=== PATIENT | male | born 1985 | race African-American/Black ===

== ENCOUNTER 2020-05-18 07:11 | Emergency (ER) | payer SELFPAY ==
[~2020-05-18] VITALS: Ht 177.8 cm; Wt 90.0 kg
[2020-05-18] MEDS ORDERED: SODIUM CHLORIDE FLUSH 10ML SYR IVF ONE (07:30)
--- NOTE | 2020-05-18 07:30 | NUR ---
PT BIB EMS FOR SEIZURE ACTIVITY. PT HAD WITNESSED 2 MIN, TONIC CLONIC SEIZURE. NO INJURY. PT PROTECTED. PT IS POST ICTAL AND CONFUSED AT THIS TIEM. A&OX3. AUDIO/VISUAL OPERATOR IN PLACE, SEIZURE PADS ON BED RAILS. CALL LIGHT IN REACH.
[2020-05-18 07:47] LABS: BASOPHILS % (AUTO) 1 % (0-1); EOSINOPHILS % (AUTO) 1 % (1-7); LYMPHOCYTES % (AUTO) 34 % (22-44); MEAN CORPUSCULAR HGB CONC 33.3 g/dL (33.2-36.2); MEAN PLATELET VOLUME 8.6 fL (7.4-10.4); MONOCYTES % (AUTO) 7 % (2-9); NEUTROPHILS % (AUTO) 57 % (42-75); PLATELET COUNT 267 x10^3/uL (130-400); RED BLOOD COUNT 5.28 x10^6/uL (4.38-5.82)
[2020-05-18 07:48] LABS: MD NO
[2020-05-18 08:03] LABS: ALANINE AMINOTRANSFERASE 35 U/L (12-78); ANION GAP 9 mmol/L (5-15); CALCIUM 8.8 mg/dL (8.5-10.1); CHLORIDE 108 mmol/L (98-107); CREATININE 1.52 mg/dL (0.7-1.3)
[2020-05-18 08:07] LABS: ALKALINE PHOSPHATASE 43 U/L (45-117); BILIRUBIN,TOTAL 0.3 mg/dL (0.2-1.0); TOTAL PROTEIN 7.8 g/dL (6.4-8.2)
[2020-05-18 08:29] VITALS: BP 131/64
[2020-05-18] MEDS ORDERED: VALPROIC ACID 250 MG CAPSULE PO ONE (09:00)
--- NOTE | 2020-05-18 09:35 | NUR ---
TASK RN: DC EDUCATION PROVIDED, PT DEMONSTRATES UNDERSTANDING. A&OX4, AMBULATORY WO ASSISTANCE. REPORTS 'HAS RIDE HOME'.
== END 2020-05-18 09:37 | disposition home or self-care (01) ==
LOC: ED 08:57
DX: G40.309 Generalized idiopathic epilepsy and epileptic syndromes, not intractable, without status epilepticus (principal); F20.9 Schizophrenia, unspecified; R00.0 Tachycardia, unspecified
CPT/HCPCS: 36415; 70450; 80053; 80164; 85025; 93005; 99285